=== PATIENT | female | born 1975 | race African-American/Black ===

== ENCOUNTER 2018-07-11 21:50 | Emergency (ER) | payer BC, OTHER ==
[~2018-07-11] VITALS: Ht 154.9 cm; Wt 68.0 kg
[2018-07-11] MEDS ORDERED: METHYLPREDNISOLONE SOD SUCC 125 MG/2 ML VIAL IV STA (22:47)
[2018-07-11] MEDS ORDERED: ALBUTEROL (0.083%) 2.5MG/3ML NEB HHN STA (22:47)
[2018-07-11] MEDS ORDERED: IPRATROPIUM BROMIDE (0.02%) 0.5MG/2.5ML NEB HHN STA (22:47)
[2018-07-11] MEDS ORDERED: FAMOTIDINE 20MG/2ML VIAL IV ONE (23:00)
[2018-07-11] MEDS ORDERED: DIPHENHYDRAMINE 50MG/ML VIAL IV ONE (23:00)
[2018-07-11 23:45] LABS: HEMATOCRIT. 43.5 % (36.0-48.0); HEMOGLOBIN. 14.8 g/dL (12.0-16.0); MEAN CORPUSCULAR VOLUME 91.4 fL (81.0-99.0); MEAN PLATELET VOLUME 6.6 fl (7.4-10.4); PLATELET 343 x1000/uL (130-400); RED BLOOD CELL COUNT 4.75 mill/uL (4.2-5.4); RED CELL DISTRIBUTION WIDTH 13.2 % (11.6-14.6)
[2018-07-11 23:53] LABS: CHLORIDE 106 mEq/L (98-107)
[2018-07-12 00:09] LABS: HCG SCREEN NEGATIVE
[2018-07-12] MEDS ORDERED: SODIUM CHLORIDE 0.9% 1000ML BAG (SEPSIS BOLUS) IV ONE (00:45)
[2018-07-12] MEDS ORDERED: LEVOFLOXACIN 750MG PREMIX 150 ML IV ONE (00:45)
[2018-07-12] MEDS ORDERED: ASPIRIN 325MG EC TABLET PO ONE (01:15)
[2018-07-12 02:00] LABS: ATYPICAL LYMPHOCYTES 1; PLATELET ESTIMATE NORMAL
[2018-07-12 02:36] VITALS: BP 122/82
== END 2018-07-12 02:43 | disposition left against medical advice (07) ==
LOC: ER 21:50 → CANBEDREQ 07-12 03:30
DX: T78.1XXA Other adverse food reactions, not elsewhere classified, initial encounter (principal); J45.901 Unspecified asthma with (acute) exacerbation; J18.8 Other pneumonia, unspecified organism; R65.20 Severe sepsis without septic shock; J18.1 Lobar pneumonia, unspecified organism; R91.8 Other nonspecific abnormal finding of lung field; J45.909 Unspecified asthma, uncomplicated; I10 Essential (primary) hypertension; F17.200 Nicotine dependence, unspecified, uncomplicated; Z88.8 Allergy status to other drugs, medicaments and biological substances; X58.XXXA Exposure to other specified factors, initial encounter
CPT/HCPCS: 36415; 71045; 80053; 83605; 84484; 84703; 85025; 87040; 93005; 94644; 96365; 96375; 99291; J1200; J1956; J2930; J3490; J7030; J7611; Z7610